=== PATIENT | male | born 1990 | race Caucasian/White ===

== ENCOUNTER → 2016-11-25 | Day surgery (SDC) | payer BC ==
[~2016-11-25] MED LIST: NEXIUM 24HR20 MG PO
--- NOTE | ~2016-11-25 | OR ---
Unit #: [id number] #: [id number] Patient: LUCY YOUNGER III [id number] [address] [id number] O MR#: [id number] NAME: LUCY YOUNGER III ROOM: Date of Procedure: 11/25/2016 Admission Date: 11/25/2016 Surgeon: Prudencio Healy M.D. : 1990 Attending Physician: Prudencio Healy M.D. Primary Care Physician: Winnie Caceres M.D. OPERATIVE REPORT PREOPERATIVE DIAGNOSES 1. Recurrent tonsillitis. 2. Adenotonsillar hypertrophy. POSTOPERATIVE DIAGNOSES 1. Recurrent tonsillitis. 2. Adenotonsillar hypertrophy. PROCEDURE PERFORMED Adenotonsillectomy. ANESTHESIA General endotracheal anesthesia. COMPLICATIONS There were none. FINDINGS Included adenotonsillar hypertrophy. HISTORY This is a 26-year-old male who has had a history of severe recurrent adenotonsillitis. He presents today for adenotonsillectomy. DESCRIPTION OF PROCEDURE The patient was placed supine on the operating table. Anesthesia was achieved by general endotracheal anesthesia. The patient was prepped and draped for adenotonsillectomy. Mouth gag was placed. The palate was palpated. There was no submucous cleft noted. Tonsils were dissected in an extracapsular fashion, first on the right and then on the left with Bovie cautery. Red rubber catheters were placed through the nose into the oropharynx to elevate the soft palate. Adenoids were 1+ to 2+ hypertrophied. These were taken down with suction Bovie cautery. All apparatus was removed. The patient was awakened and transferred to Recovery in stable condition. Dictated by... Marti Naidu/odette Unit #: [id number] #: [id number] Patient: LUCY YOUNGER III TD: 11/26/2016 09:59 JOB #: [id number] OPERATIVE REPORT Page 1 of 1 X Prudencio Healy MD PROCEDURE OPERATIVE NOTE
== END | disposition home or self-care (01) ==
LOC: CSUR 09:48
DX: J03.91 Acute recurrent tonsillitis, unspecified (principal); J35.3 Hypertrophy of tonsils with hypertrophy of adenoids; J45.909 Unspecified asthma, uncomplicated; Z79.899 Other long term (current) drug therapy; Z87.19 Personal history of other diseases of the digestive system
CPT/HCPCS: 88304; J1100; J1170; J2250; J2405; J3010